=== PATIENT | male | born 1930 | race Two or more races ===

== ENCOUNTER 2019-05-18 23:23 | Inpatient (IN) | payer OTHER ==
[~2019-05-18] VITALS: Ht 162.6 cm; Wt 81.6 kg
[2019-05-18] MEDS ORDERED: METFORMIN HCL500 M3 (23:53)
[2019-05-18] MEDS ORDERED: ZOCOR20 MG (23:53)
[2019-05-18] MEDS ORDERED: DEPAKOTE ER250 MG (23:53)
[2019-05-18] MEDS ORDERED: LEXAPRO5 MG (23:53)
[2019-05-18] MEDS ORDERED: MELATONIN3 M4 (23:54)
[2019-06-02] MEDS ORDERED: ESCITALOPRAM OX10 MG PO (09:34)
[2019-06-02] MEDS ORDERED: SIMVASTATIN40 MG PO (09:34)
[2019-06-02] MEDS ORDERED: OMEGA-3 ACID ETH1 GM PO (09:35)
[2019-06-08] MEDS ORDERED: SIMVASTATIN40 MG PO (12:05)
[2019-06-08] MEDS ORDERED: PROTONIX40 MG PO (12:07)
== END 2019-06-08 15:48 | disposition home or self-care (01) | DRG 871 ==
LOC: ER 23:23 → ICU 05-19 09:21 → ICU-2 05-19 09:21 → ICU 05-19 09:56
PROVIDERS: ADMIT Internal Medicine
PROC: BT4JZZZ Ultrasonography of Kidneys and Bladder (ICD-10-PCS; 2019-05-19)
PROC: B54DZZZ Ultrasonography of Bilateral Lower Extremity Veins (ICD-10-PCS; 2019-05-19)
PROC: 8E0ZXY6 Isolation (ICD-10-PCS; 2019-05-20)
PROC: 05HY33Z Insertion of Infusion Device into Upper Vein, Percutaneous Approach (ICD-10-PCS; 2019-05-20)
PROC: B246ZZZ Ultrasonography of Right and Left Heart (ICD-10-PCS; 2019-05-20)
PROC: 30233N1 Transfusion of Nonautologous Red Blood Cells into Peripheral Vein, Percutaneous Approach (ICD-10-PCS; 2019-05-20)
PROC: 4A033R1 Measurement of Arterial Saturation, Peripheral, Percutaneous Approach (ICD-10-PCS; 2019-05-24)
PROC: 0DB68ZX Excision of Stomach, Via Natural or Artificial Opening Endoscopic, Diagnostic (ICD-10-PCS; principal; 2019-06-02)
PROC: 06HM33Z Insertion of Infusion Device into Right Femoral Vein, Percutaneous Approach (ICD-10-PCS; 2019-06-06)
DX: A41.9 Sepsis, unspecified organism (principal); R65.21 Severe sepsis with septic shock; G92 Toxic encephalopathy; I21.A1 Myocardial infarction type 2; J96.01 Acute respiratory failure with hypoxia; N17.8 Other acute kidney failure; I96 Gangrene, not elsewhere classified; I67.82 Cerebral ischemia; F05 Delirium due to known physiological condition; I82.431 Acute embolism and thrombosis of right popliteal vein; B37.89 Other sites of candidiasis; E87.2 Acidosis; K92.0 Hematemesis; C16.3 Malignant neoplasm of pyloric antrum; I48.0 Paroxysmal atrial fibrillation; R13.19 Other dysphagia; D69.49 Other primary thrombocytopenia; K29.40 Chronic atrophic gastritis without bleeding; E11.65 Type 2 diabetes mellitus with hyperglycemia; L89.151 Pressure ulcer of sacral region, stage 1; L89.611 Pressure ulcer of right heel, stage 1; I10 Essential (primary) hypertension; G30.0 Alzheimer's disease with early onset; E87.5 Hyperkalemia; F02.80 Dementia in other diseases classified elsewhere, unspecified severity, without behavioral disturbance, psychotic disturbance, mood disturbance, and anxiety; Z66 Do not resuscitate; Z79.4 Long term (current) use of insulin; Z74.01 Bed confinement status; Z03.818 Encounter for observation for suspected exposure to other biological agents ruled out; Z79.01 Long term (current) use of anticoagulants